=== PATIENT | male | born 1960 | race American Indian/Alaskan Native ===

== ENCOUNTER 2016-08-14 09:44 | Outpatient (CLI) | payer MEDICAID | END 2016-08-14 09:45 | disposition home or self-care (01) | LOC: WOUND 09:44 | PROVIDERS: ATTEND Orthopaedic Surgery | DX: L89.322 Pressure ulcer of left buttock, stage 2 (principal) | CPT/HCPCS: 99213; G0463 ==

== ENCOUNTER 2016-09-11 13:16 | Outpatient (CLI) | payer MEDICAID ==
[~2016-09-11 13:16] MED LIST: XYLOCAINE TOPICAL 2% TP ONE
== END 2016-09-11 13:17 | disposition home or self-care (01) ==
LOC: WOUND 13:16
PROVIDERS: ATTEND Internal Medicine
DX: L89.153 Pressure ulcer of sacral region, stage 3 (principal); L89.322 Pressure ulcer of left buttock, stage 2; G40.509 Epileptic seizures related to external causes, not intractable, without status epilepticus; G82.21 Paraplegia, complete; E43 Unspecified severe protein-calorie malnutrition; G83.9 Paralytic syndrome, unspecified; L84 Corns and callosities
CPT/HCPCS: 99212; G0463

== ENCOUNTER 2016-12-24 08:22 | Outpatient (CLI) | payer MEDICAID ==
[2016-12-24] MEDS ORDERED: XYLOCAINE TOPICAL 2% TP ONE ×2 (08:46→10:27)
== END 2016-12-24 08:23 | disposition home or self-care (01) ==
LOC: WOUND 08:22
PROVIDERS: ATTEND Surgery
DX: L89.322 Pressure ulcer of left buttock, stage 2 (principal); G40.89 Other seizures; F84.8 Other pervasive developmental disorders
CPT/HCPCS: 97597; G0463

== ENCOUNTER 2017-01-07 09:44 | Outpatient (CLI) | payer MEDICAID ==
[2017-01-07] MEDS ORDERED: XYLOCAINE TOPICAL 4% TP ONE ×2 (11:21→11:30)
== END 2017-01-07 09:45 | disposition home or self-care (01) ==
LOC: WOUND 09:44
PROVIDERS: ATTEND Surgery
DX: L89.323 Pressure ulcer of left buttock, stage 3 (principal); L89.892 Pressure ulcer of other site, stage 2; F84.8 Other pervasive developmental disorders
CPT/HCPCS: 99215; G0463

== ENCOUNTER 2017-02-04 09:42 | Outpatient (CLI) | payer MEDICAID | END 2017-02-04 09:43 | disposition home or self-care (01) | LOC: WOUND 09:42 | PROVIDERS: ATTEND Surgery | DX: L89.323 Pressure ulcer of left buttock, stage 3 (principal); F84.8 Other pervasive developmental disorders; G40.89 Other seizures | CPT/HCPCS: 99213; G0463 ==

== ENCOUNTER 2019-02-25 09:50 | Outpatient (CLI) | payer MEDICAID ==
[2019-02-25] MEDS ORDERED: XYLOCAINE TOPICAL 4% TP ONE (10:20)
== END 2019-02-25 09:51 | disposition home or self-care (01) ==
LOC: WOUND 09:50
PROVIDERS: ATTEND Surgery
DX: L89.323 Pressure ulcer of left buttock, stage 3 (principal); F84.8 Other pervasive developmental disorders; G40.89 Other seizures; F01.50 Vascular dementia, unspecified severity, without behavioral disturbance, psychotic disturbance, mood disturbance, and anxiety
CPT/HCPCS: 99215; G0463

== ENCOUNTER 2019-03-11 10:02 | Outpatient (CLI) | payer MEDICAID ==
[2019-03-11] MEDS ORDERED: XYLOCAINE TOPICAL 4% TP ONE (10:30)
== END 2019-03-11 10:03 | disposition home or self-care (01) ==
LOC: WOUND 10:02
PROVIDERS: ATTEND Surgery
DX: L89.223 Pressure ulcer of left hip, stage 3 (principal); L89.153 Pressure ulcer of sacral region, stage 3; F84.8 Other pervasive developmental disorders; G40.89 Other seizures; F01.50 Vascular dementia, unspecified severity, without behavioral disturbance, psychotic disturbance, mood disturbance, and anxiety

== ENCOUNTER 2019-03-18 10:03 | Outpatient (CLI) | payer MEDICAID | END 2019-03-18 10:04 | disposition home or self-care (01) | LOC: WOUND 10:03 | PROVIDERS: ATTEND Surgery | DX: L89.223 Pressure ulcer of left hip, stage 3 (principal); L89.153 Pressure ulcer of sacral region, stage 3; L89.213 Pressure ulcer of right hip, stage 3; F01.50 Vascular dementia, unspecified severity, without behavioral disturbance, psychotic disturbance, mood disturbance, and anxiety ==

== ENCOUNTER 2019-04-01 10:27 | Outpatient (CLI) | payer MEDICAID | END 2019-04-01 10:28 | disposition home or self-care (01) | LOC: WOUND 10:27 | PROVIDERS: ATTEND Surgery | DX: L89.223 Pressure ulcer of left hip, stage 3 (principal); L89.213 Pressure ulcer of right hip, stage 3; L89.153 Pressure ulcer of sacral region, stage 3; F01.50 Vascular dementia, unspecified severity, without behavioral disturbance, psychotic disturbance, mood disturbance, and anxiety ==

== ENCOUNTER 2019-04-08 11:00 | Outpatient (CLI) | payer MEDICAID | END 2019-04-08 11:01 | disposition home or self-care (01) | LOC: WOUND 11:00 | PROVIDERS: ATTEND Surgery | DX: L89.223 Pressure ulcer of left hip, stage 3 (principal); L89.213 Pressure ulcer of right hip, stage 3; L89.153 Pressure ulcer of sacral region, stage 3; F01.50 Vascular dementia, unspecified severity, without behavioral disturbance, psychotic disturbance, mood disturbance, and anxiety ==

== ENCOUNTER 2019-04-15 11:00 | Outpatient (CLI) | payer MEDICAID ==
[2019-04-15] MEDS ORDERED: XYLOCAINE TOPICAL 4% TP ONE (12:00)
[2019-04-15] MEDS ORDERED: SILVER NITRATE TP ONE (12:17)
== END 2019-04-15 11:01 | disposition home or self-care (01) ==
LOC: WOUND 11:00
PROVIDERS: ATTEND Surgery
DX: L89.223 Pressure ulcer of left hip, stage 3 (principal); L89.213 Pressure ulcer of right hip, stage 3; L89.153 Pressure ulcer of sacral region, stage 3; F01.50 Vascular dementia, unspecified severity, without behavioral disturbance, psychotic disturbance, mood disturbance, and anxiety

== ENCOUNTER 2019-04-21 10:53 | Outpatient (CLI) | payer MEDICAID ==
[2019-04-21] MEDS ORDERED: XYLOCAINE TOPICAL 4% TP ONE (11:30)
== END 2019-04-21 10:54 | disposition home or self-care (01) ==
LOC: WOUND 10:53
PROVIDERS: ATTEND Surgery
DX: L89.223 Pressure ulcer of left hip, stage 3 (principal); L89.213 Pressure ulcer of right hip, stage 3; F01.50 Vascular dementia, unspecified severity, without behavioral disturbance, psychotic disturbance, mood disturbance, and anxiety

== ENCOUNTER 2019-04-29 10:52 | Outpatient (CLI) | payer MEDICAID ==
[2019-04-29] MEDS ORDERED: SILVER NITRATE TP ONE (11:17)
[2019-04-29] MEDS ORDERED: XYLOCAINE TOPICAL 4% TP ONE (11:17)
== END 2019-04-29 10:53 | disposition home or self-care (01) ==
LOC: WOUND 10:52
PROVIDERS: ATTEND Surgery
DX: L89.223 Pressure ulcer of left hip, stage 3 (principal); L89.213 Pressure ulcer of right hip, stage 3; F01.50 Vascular dementia, unspecified severity, without behavioral disturbance, psychotic disturbance, mood disturbance, and anxiety

== ENCOUNTER 2019-05-20 10:37 | Outpatient (CLI) | payer MEDICAID | END 2019-05-20 10:38 | disposition home or self-care (01) | LOC: WOUND 10:37 | PROVIDERS: ATTEND Surgery | DX: L89.223 Pressure ulcer of left hip, stage 3 (principal); L89.213 Pressure ulcer of right hip, stage 3; F01.50 Vascular dementia, unspecified severity, without behavioral disturbance, psychotic disturbance, mood disturbance, and anxiety ==

== ENCOUNTER 2019-06-03 10:53 | Outpatient (CLI) | payer MEDICAID ==
[2019-06-03] MEDS ORDERED: SILVER NITRATE TP NR (11:30)
[2019-06-03] MEDS ORDERED: XYLOCAINE TOPICAL 4% TP NR (11:30)
== END 2019-06-03 10:54 | disposition home or self-care (01) ==
LOC: WOUND 10:53
PROVIDERS: ATTEND Surgery
DX: L89.223 Pressure ulcer of left hip, stage 3 (principal); L89.213 Pressure ulcer of right hip, stage 3; F01.50 Vascular dementia, unspecified severity, without behavioral disturbance, psychotic disturbance, mood disturbance, and anxiety

== ENCOUNTER 2019-10-26 09:47 | Outpatient (CLI) | payer MEDICAID ==
[2019-10-26] MEDS ORDERED: LIDOCAINE (4%) 40 MG/ML TOPICAL SOLN 50 ML BOTTLE TP ONE (10:30)
== END 2019-10-26 09:48 | disposition home or self-care (01) ==
LOC: WOUND 09:47
PROVIDERS: ATTEND Surgery
DX: L89.223 Pressure ulcer of left hip, stage 3 (principal); L89.213 Pressure ulcer of right hip, stage 3; F01.50 Vascular dementia, unspecified severity, without behavioral disturbance, psychotic disturbance, mood disturbance, and anxiety
CPT/HCPCS: 99215; G0463

== ENCOUNTER 2021-05-14 10:17 | Outpatient (CLI) | payer MEDICAID ==
[2021-05-14] MEDS ORDERED: LIDOCAINE (4%) 40 MG/ML TOPICAL SOLN 50 ML BOTTLE TP ONE (11:01)
== END 2021-05-14 10:18 | disposition home or self-care (01) ==
LOC: WOUND 10:17
PROVIDERS: ATTEND Surgery
DX: L89.212 Pressure ulcer of right hip, stage 2 (principal); L84 Corns and callosities; N18.2 Chronic kidney disease, stage 2 (mild)
CPT/HCPCS: 99213; G0463